=== PATIENT | male | born 1990 | race Caucasian/White ===

== ENCOUNTER 2021-08-12 20:54 | Emergency (ER) | payer OTHER ==
[~2021-08-12] VITALS: Ht 177.8 cm; Wt 86.2 kg
[2021-08-12 21:02] VITALS: BP_SYST 144
[2021-08-12] MEDS ORDERED: [UNRECOGNIZED DRUG - CODE] TP (22:04)
[2021-08-12 23:12] VITALS: BP_SYST 145
== END 2021-08-12 23:12 | disposition home or self-care (01) ==
LOC: SED 20:54
DX: S16.1XXA Strain of muscle, fascia and tendon at neck level, initial encounter (principal); I10 Essential (primary) hypertension; Z88.8 Allergy status to other drugs, medicaments and biological substances; X50.0XXA Overexertion from strenuous movement or load, initial encounter; Y93.89 Activity, other specified; Y92.89 Other specified places as the place of occurrence of the external cause; Y99.8 Other external cause status
CPT/HCPCS: 72040-TC; 99283